=== PATIENT | female | born 1980 | race Hispanic/Latino ===

== ENCOUNTER 2017-12-11 18:00 | Emergency (ER) | payer OTHER ==
[~2017-12-11] VITALS: Ht 157.5 cm; Wt 75.5 kg
[2017-12-11] MEDS ORDERED: ONDANSETRON HCL INJ 2 MG/ML VIAL IV STA (18:41)
[2017-12-11] MEDS ORDERED: MORPHINE SULFATE 5 MG/ML VIAL IV ONE (18:45)
[2017-12-11] MEDS ORDERED: SODIUM CHLORIDE 0.9% 500ML 500 ML IV ONE (18:45)
[2017-12-11] MEDS ORDERED: BELLADONNA ALK/PHENOBARBITAL 5 ML UDC PO ONE (20:30)
[2017-12-11 22:01] VITALS: BP 137/84
== END 2017-12-11 20:45 | disposition home or self-care (01) ==
LOC: FSED 18:00
DX: R10.31 Right lower quadrant pain (principal); R10.32 Left lower quadrant pain; R11.0 Nausea
CPT/HCPCS: 99283; J2270; J2405; J7040

== ENCOUNTER 2018-03-08 12:49 | Emergency (ER) | payer OTHER ==
[~2018-03-08] VITALS: Ht 157.5 cm; Wt 68.9 kg
--- OUTSIDE RECORDS SUMMARY | 2018-03-08 12:51 | XMS REPORT | Continuity of Care Document ---
Author Author [facility] Organization [facility] Address [address] [place] [address] Phone Unavailable Care Team Providers Care Furnace Builder Name Role Phone NO, PCP PCP Unavailable Insurance Providers Guarantor Maritza Carrasco Address [address] [place] [address] Email [email or web address] Payer [employer] Policy Number [id number] Subscriber's Name Binta Carrascosol Relationship 18 Self / Same As Patient Group Number [id number] Group Name [id number] Effective Date 17 Advance Directives Directive Response Recorded Date/Time Does the patient have an advance directive? No 11/09/15 9:49pm If yes, is advance directive on file with [facility]? No 11/09/15 9:49pm If not on file with [facility] will patient provide a copy? No 11/09/15 9:49pm Do you have a Directive to Physician? No 12/11/17 6:10pm Do you have a Medical Power of Swage Toolsetter? No 12/11/17 6:10pm Do you have an out of hospital Do Not Resuscitate Order? No 12/11/17 6:10pm Do you have any special needs we should be aware of? No 12/11/17 6:10pm Do you have a support person here with you today? Yes 12/11/17 6:10pm Did patient receive Notice of Privacy Practices? Yes 12/11/17 6:10pm Did patient receive patient rights and responsibilities? Yes 12/11/17 6:10pm Problems No problem information available. Medications Current Home Medications Medication Dose Units Route Directions Days Qty Instructions Start Date None Social History Smoking Status Start Date Stop Date Never Smoker Hospital Discharge Instructions No hospital discharge instruction information available. Plan of Care Discharge Date 12/11/17 8:45pm Disposition HOME, SELF-CARE Condition at Discharge Improved Instructions/Education Provided Abdominal Pain - Adult Forms Provided Work/School Excuse Prescriptions See Medication Section Additional Instructions/Education Discussed working diagnosis of abdominal pain. Recommend medical therapy with follow up MD in 2-3 days for further evaluation/treatment. ED warnings given. Functional Status No functional status information available. Allergies, Adverse Reactions, Alerts No known allergies. Immunizations No immunization information available. Vital Signs Acute Vital Signs Vital Response Date/Time Temperature (Fahrenheit) 98.0 degrees F (97.6 - 99.5) 12/11/2017 10:01pm Pulse Pulse Rate (adult) 76 bpm (60 - 90) 12/11/2017 10:01pm Respiratory Rate 16 bpm (12 - 24) 12/11/2017 10:01pm Blood Pressure 137/84 mm Hg 12/11/2017 10:01pm Height 5 ft 2 in 12/11/2017 6:26pm Weight 166.38 lb 12/11/2017 6:26pm Body Mass Index 30.4 kg/m^2 12/11/2017 6:26pm Results No relevant diagnostic test, laboratory data and/or discharge summary information available. Procedures No procedure information available. Encounters Encounter Location Arrival/Admit Date Discharge/Depart Date Attending Provider Departed Emergency Room [facility] 12/11/17 6:00pm 8:45pm GIOVANNY RIBEIRO MD
[2018-03-08 13:43] VITALS: BP 126/80
== END 2018-03-08 13:54 | disposition home or self-care (01) ==
LOC: FSED 12:49
DX: R30.0 Dysuria (principal)
CPT/HCPCS: 81003; 99283

== ENCOUNTER → 2018-05-12 | Emergency (ER) | payer OTHER ==
[~2018-05-12] VITALS: Ht 157.5 cm; Wt 68.9 kg
== END | disposition home or self-care (01) ==
LOC: FSED 21:15
DX: R30.0 Dysuria (principal); N89.8 Other specified noninflammatory disorders of vagina
CPT/HCPCS: 81003; 81025; 87086; 99282

== ENCOUNTER 2018-07-11 08:48 | Emergency (ER) | payer OTHER ==
[~2018-07-11] VITALS: Ht 157.5 cm; Wt 68.9 kg
== END 2018-07-11 09:58 | disposition home or self-care (01) ==
LOC: FSED 08:48
DX: K02.9 Dental caries, unspecified (principal)
CPT/HCPCS: 99283

== ENCOUNTER 2021-08-11 12:37 | Emergency (ER) | payer OTHER ==
[~2021-08-11] VITALS: Ht 157.5 cm; Wt 76.2 kg
[2021-08-11] MEDS ORDERED: PREDNISONE20 MG PO (13:07)
[2021-08-11] MEDS ORDERED: IBUPROFEN IB200 MG PO (13:07)
[2021-08-11] MEDS ORDERED: THERAFLU NIGHT1 EAC5 PO (13:07)
[2021-08-11] MEDS ORDERED: CEFDINIR300 MG PO (13:07)
== END 2021-08-11 13:25 | disposition home or self-care (01) ==
LOC: FSED 12:39
DX: R05.9 Cough, unspecified (principal); J40 Bronchitis, not specified as acute or chronic; J06.9 Acute upper respiratory infection, unspecified
CPT/HCPCS: 83518; 87400; 99282

== ENCOUNTER 2022-05-23 15:00 | Emergency (ER) | payer SELFPAY ==
[~2022-05-23] VITALS: Ht 157.5 cm; Wt 76.2 kg
[~2022-05-23 15:00] MED LIST: CEFDINIR300 MG PO; IBUPROFEN IB200 MG PO; PREDNISONE20 MG PO; THERAFLU NIGHT1 EAC5 PO
[2022-05-23] MEDS ORDERED: DEXAMETHASONE SOD PHOS 10 MG/1 ML VIAL IV ONE (15:30)
[2022-05-23] MEDS ORDERED: DEXAMETHASONE SOD PHOS INJ 4 MG/ML SDV ONE (15:44)
[2022-05-23] MEDS ORDERED: IBUPROFEN600 MG PO (15:55)
== END 2022-05-23 16:30 | disposition home or self-care (01) ==
LOC: FSED 15:05
DX: J06.9 Acute upper respiratory infection, unspecified (principal); U07.1 COVID-19
CPT/HCPCS: 83518; 99283; J1100 ×2; U0002

== ENCOUNTER 2024-12-12 22:48 | Emergency (ER) | payer OTHER ==
[~2024-12-12] VITALS: Ht 157.5 cm; Wt 71.2 kg
[~2024-12-12 22:48] MED LIST changes: +IBUPROFEN600 MG PO
[2024-12-12 22:56] VITALS: PULSE 105; RESP 16; TEMP 98.4
[2024-12-12 23:33] LABS: CLARITY,URINE CLEAR (CLEAR); COLOR,URINE ORANGE (YELLOW); LEUKOCYTE ESTERASE ,URINE LARGE (NEGATIVE); NITRITE,URINE POSITIVE (NEGATIVE); PH,URINE 5.5 (5 - 7); PROTEIN,URINE DIPSTICK 1+ (NEGATIVE)
[2024-12-12 23:34] LABS: BILIRUBIN,URINE NEGATIVE (NEGATIVE); GLUCOSE, URINE 1+ (NEGATIVE); KETONES,URINE NEGATIVE (NEGATIVE); URINE UROBILINOGEN 1 mg/dL (0.2 - 1)
[2024-12-12 23:47] LABS: BACTERIA,URINE MANY /HPF; EPITHELIAL CELLS,URINE MODERATE /LPF; RENAL EPITHELIAL CELLS,URINE FEW; TRANSITIONAL EPI CELLS,URINE FEW; WBC,URINE (MAN) >50 /HPF (0-5)
[2024-12-12 23:54] VITALS: BP 136/98; PULSE 90; RESP 16; TEMP 97.8; O2SAT 100
[2024-12-12] MEDS ORDERED: CEFDINIR300 MG PO (23:57)
[2024-12-12] MEDS ORDERED: METRONIDAZOLE500 MG PO (23:57)
== END 2024-12-13 00:04 | disposition home or self-care (01) ==
LOC: ER 22:52
DX: R30.0 Dysuria (principal); T19.2XXA Foreign body in vulva and vagina, initial encounter; N39.0 Urinary tract infection, site not specified
CPT/HCPCS: 81001; 99283

== ENCOUNTER 2025-02-13 14:16 | Emergency (ER) | payer OTHER ==
[~2025-02-13] VITALS: Ht 157.5 cm; Wt 75.9 kg
[~2025-02-13 14:16] MED LIST changes: +METRONIDAZOLE500 MG PO
[2025-02-13 14:25] VITALS: RESP 20; TEMP 98.5; O2SAT 99
[2025-02-13] MEDS: AMLODIPINE BESYLATE 10 MG TAB PO ONE (15:10)
[2025-02-13] MEDS: ASPIRIN 325 MG TAB PO ONE (15:10)
[2025-02-13 16:10] VITALS: PULSE 75
[2025-02-13] MEDS ORDERED: AMLODIPINE BESY10 MG PO (17:46)
[2025-02-13 17:59] VITALS: BP 140/94; PULSE 85; RESP 18
== END 2025-02-13 17:57 | disposition home or self-care (01) ==
LOC: FSED 14:22
DX: R51.9 Headache, unspecified (principal); I10 Essential (primary) hypertension; R20.2 Paresthesia of skin; R11.0 Nausea; R53.1 Weakness; Z11.52 Encounter for screening for COVID-19
CPT/HCPCS: 0223U; 70450; 71046; 80053; 80076; 81003; 81025; 83518; 83880; 84484; 85025; 87400; 93005; 99283

== ENCOUNTER 2025-07-04 11:03 | Emergency (ER) | payer OTHER ==
[~2025-07-04] VITALS: Ht 157.5 cm; Wt 75.7 kg
[~2025-07-04 11:03] MED LIST changes: +AMLODIPINE BESY10 MG PO
[2025-07-04 11:45] VITALS: PULSE 73; RESP 18; TEMP 98.4
[2025-07-04] MEDS ORDERED: DEXAMETHASONE 4 MG TAB PO STA (12:15)
[2025-07-04 12:44] LABS: CORONAVIRUS COVID-19 AG NEGATIVE (NEGATIVE); INFLUENZA A NAA NEGATIVE (NEGATIVE); INFLUENZA B NAA NEGATIVE (NEGATIVE)
[2025-07-04 13:46] VITALS: BP 141/88; PULSE 74; RESP 16; O2SAT 100
== END 2025-07-04 13:45 | disposition home or self-care (01) ==
LOC: ER 11:07
DX: R51.9 Headache, unspecified (principal); J06.9 Acute upper respiratory infection, unspecified; R09.89 Other specified symptoms and signs involving the circulatory and respiratory systems; Z11.52 Encounter for screening for COVID-19
CPT/HCPCS: 99282